=== PATIENT | male | born 1955 | race Asian ===

== ENCOUNTER 2021-09-06 10:08 | Inpatient (IN) | payer MEDICAID, OTHER ==
[~2021-09-06] VITALS: Ht 165.1 cm; Wt 66.7 kg
[2021-09-06 12:24] LABS: HEMATOCRIT. 40.9 % (42.0-52.0); HEMOGLOBIN. 13.3 g/dL (14.0-18.0); MEAN CORPUSCULAR HEMOGLOBIN 31.2 pg (28.0-32.0); MEAN CORPUSCULAR VOLUME 95.9 fL (80.0-94.0); RED BLOOD CELL COUNT 4.26 mill/uL (4.7-6.1); RED CELL DISTRIBUTION WIDTH 14.3 % (11.6-14.6)
[2021-09-06 12:25] LABS: BASOPHILS % 0.2 % (0.0-2.0); EOSINOPHILS % 1.3 % (0.0-5.0); LYMPHOCYTES % 15.7 % (20.0-50.0); MEAN PLATELET VOLUME 7.4 fl (7.4-10.4); NEUTROPHILS % 74.8 % (40.0-76.0); PLATELET 335 x1000/uL (130-400)
[2021-09-06 12:32] LABS: CHLORIDE 110 mEq/L (98-107)
[2021-09-06 12:37] LABS: ETHANOL BLOOD < 10 mg/dL
[2021-09-06 20:37] LABS: CLARITY URINE CLEAR (CLEAR); COLOR URINE YELLOW (YELLOW); KETONES URINE NEGATIVE (NEGATIVE); LEUKOCYTE ESTERASE URINE NEGATIVE (NEGATIVE); NITRITE URINE NEGATIVE (NEGATIVE); OCCULT BLOOD URINE NEGATIVE (NEGATIVE); PH URINE 7.5 (4.5-8.0); PROTEIN URINE NEGATIVE (NEGATIVE); SPECIFIC GRAVITY URINE 1.009 (1.005-1.030); UROBILINOGEN URINE 0.2 E.U./dL (0.2-1.0)
[2021-09-06 20:46] LABS: *BARBITURATES SCREEN URINE NEGATIVE (NEGATIVE); *BENZODIAZEPINES SCREEN URINE NEGATIVE (NEGATIVE); *COCAINE SCREEN URINE NEGATIVE (NEGATIVE)
[2021-09-06 20:47] LABS: *AMPHETAMINES SCREEN URINE NEGATIVE (NEGATIVE); CANNABINOID URINE SCREEN NEGATIVE (NEGATIVE); METHADONE URINE SCREEN NEGATIVE (NEGATIVE); OPIATES URINE SCREEN NEGATIVE (NEGATIVE); PHENCYCLIDINE URINE SCREEN NEGATIVE (NEGATIVE)
[2021-09-06 23:20] VITALS: BP 160/67
[2021-09-06 23:25] VITALS: BP 125/77
[2021-09-07] MEDS: LORAZEPAM 2MG/ML CPJ IV PRN ×3 (01:00→21:01)
[2021-09-07 03:56] VITALS: BP 125/80
[2021-09-07] MEDS ORDERED: LORAZEPAM 2MG/ML CPJ IV NR (05:00)
[2021-09-07 08:00] VITALS: BP 141/82
[2021-09-07] MEDS: LEVETIRACETAM 500MG TABLET PO SCH ×2 (08:43→21:01)
[2021-09-07] MEDS: FOLIC ACID/VITAMIN B COMP W-C TABLET PO SCH (08:43)
[2021-09-07] MEDS: MULTIVITAMINS,THER W-MINERALS TABLET PO SCH (08:43)
[2021-09-07] MEDS: THIAMINE HCL 100MG TABLET PO SCH (08:43)
[2021-09-07 12:00] VITALS: BP 108/58
[2021-09-07 17:41] LABS: CHLORIDE 111 mEq/L (98-107)
[2021-09-07 20:00] VITALS: BP 130/79
[2021-09-07] MEDS: NICOTINE 21MG PATCH TD SCH (22:57)
[2021-09-08] VITALS: BP 137/87
[2021-09-08 04:00] VITALS: BP 139/58
[2021-09-08 08:00] VITALS: BP 129/72
[2021-09-08] MEDS: NICOTINE 21MG PATCH TD SCH (09:00)
[2021-09-08] MEDS: MULTIVITAMINS,THER W-MINERALS TABLET PO SCH (09:00)
[2021-09-08] MEDS: LEVETIRACETAM 500MG TABLET PO SCH ×2 (09:00→21:00)
[2021-09-08] MEDS: FOLIC ACID/VITAMIN B COMP W-C TABLET PO SCH (09:00)
[2021-09-08] MEDS: THIAMINE HCL 100MG TABLET PO SCH (09:00)
[2021-09-08] MEDS: LORAZEPAM 2MG/ML CPJ IM PRN ×2 (11:58→19:01)
[2021-09-08 12:00] VITALS: BP 121/70
[2021-09-08 16:00] VITALS: BP 114/70
== END 2021-09-08 21:20 | disposition left against medical advice (07) | DRG 52 ==
LOC: ER 10:58 → 7EST 15:04 → ENRESERV 21:32 → 6EST 09-08 09:20
PROVIDERS: ADMIT Internal Medicine; ATTEND Internal Medicine
DX: G93.41 Metabolic encephalopathy (principal); E44.1 Mild protein-calorie malnutrition; E87.8 Other disorders of electrolyte and fluid balance, not elsewhere classified; F03.90 Unspecified dementia, unspecified severity, without behavioral disturbance, psychotic disturbance, mood disturbance, and anxiety; Z53.29 Procedure and treatment not carried out because of patient's decision for other reasons; Z68.24 Body mass index [BMI] 24.0-24.9, adult; Z91.83 Wandering in diseases classified elsewhere
CPT/HCPCS: 36415; 71045; 80053; 80305; 80320; 81003; 82140; 82962; 85025; 99285; J2060; G0480